=== PATIENT | male | born 1995 | race Caucasian/White ===

== ENCOUNTER 2021-01-07 08:23 | Emergency (ER) | payer BC ==
[2021-01-07] MEDS ORDERED: Naproxen 500 MG Tab PO ONE (08:39)
--- NOTE | 2021-01-07 08:41 | EDM.PDOC ---
ED HPI GENERAL MEDICAL PROBLEM - General Chief Complaint: Respiratory Problem Stated Complaint: chest pain Time Seen by Provider: 01/07/21 08:29 - History of Present Illness INITIAL COMMENTS - FREE TEXT/NARRATIVE: History of present illness: [] The patient is trouble sleeping for 2 or 3 weeks because he cannot find a position where he feels like he cannot get enough air. He wheezes at night according to the . Patient says that for 3 to 4 days he feels tightness in his chest. His pressure in the anterior chest and he has trouble breathing. It is worse at night. He has chronic recurring drainage from his nose and is a obligate mouth breather. This is been a problem for his entire life. The patient had a little fever 2 days ago. He has no nausea vomiting change in appetite change in bowel or bladder habits. He is not diabetic and has no history of hypertension high cholesterol. His father had coronary vessel disease in his 30s. Review of systems: As per history of present illness and below otherwise all systems reviewed and negative. Past medical history: As per history of present illness and as reviewed below otherwise noncontributory. Surgical history: As per history of present illness and as reviewed below otherwise noncontributory. Social history: No reported history of drug or alcohol abuse. Family history: As per history of present illness and as reviewed below otherwise noncontri butory. Physical exam: Constitutional - well developed, well-nourished and in no acute distress HEENT - normocephalic, no evidence of trauma - external nose and mouth normal - no mass in neck and no JVD - mucosae moist EYES - full EOM, PERRL, no icterus - no evidence of inflammation, injection, or drainage Respiratory - no respiratory distress, equal bilateral expansion, lungs diminished throughout with coarse expiratory sounds and prolonged expiratory phase of respiration Cardiovascular - Regular Rhythm with S1 and S2 appreciated and no murmur, gallop or rub. GI - abdomen soft without distension or organomegaly - normal bowel sounds - no guard or rebound Musculoskeletal no gross deformity of long bones or joints - no tenderness, swelling or edema Neurologic - Alert and oriented times four - CN II-XII grossly intact - motor sensory and coordination symmetrically normal Psychiatric - appropriate mood and affect with normal thought content Hematologic - No petechiae or purpura - mucosa appropriate color and sclera not pale - normal nail bed color and refill Integument - no rash or evidence of trauma - normal turgor Diagnostics: [] Therapeutics: [] Impression: [] Plan: [] Definitive disposition and diagnosis as appropriate pending reevaluation and review of above. - Related Data Allergies Allergy/AdvReac Type Severity Reaction Status Date / Time No Known Allergies Allergy Verified 01/07/21 08:44 Home Meds: Home Meds Albuterol Sulfate [Albuterol Sulfate HFA] 8.5 gm INH Q4HR PRN #1 inhaler 01/07/21 [Rx] predniSONE [Prednisone] 60 mg PO DAILY #15 tablet 01/07/21 [Rx] Past Medical History HEENT History: Reports: None Cardiovascular History: Reports: None Respiratory History: Reports: None Gastrointestinal History: Reports: GERD Genitourinary History: Reports: None Musculoskeletal History: Reports: Fracture, Other (See Below) Other Musculoskeletal History: R hand Neurological History: Reports: None Psychiatric History: Reports: None Endocrine/Metabolic History: Reports: None Hematologic History: Reports: None Immunologic History: Reports: None Oncologic (Cancer) History: Reports: None Dermatologic History: Reports: None - Infectious Disease History Infectious Disease History: Reports: None - Past Surgical History Head Surgeries/Procedures: Reports: None Social & Family History - Family History Family Medical History: No Pertinent Family History ED ROS GENERAL - Review of Systems Review Of Systems: Comprehensive ROS is negative, except as noted in HPI. ED EXAM, GENERAL - Physical Exam Exam: See Below Free Text/Narrative:: My physical exam is in the HPI #1 Interpretation EKG Interpretation Comments: ED sinus rhythm heart rate 82 NM interval 165. QT duration 414 and axis 48. Normal QRS. Normal ST and T. No prior for comparison. Impression normal Course - Vital Signs Text/Narrative:: 839 hours x-ray is normal. That is my interpretation. Patient will be given comfort splint and told to take anti-inflammatories and apply heat. Ortho follow-up as needed only 1038 hrs. the patient is markedly improved. Discharged in satisfactory condition with a prescription for albuterol, a prednisone prescription, increase fluids and a chamber to use with the inhaler to extend the distance between his mouth and the inhaler. Last Recorded V/S: Last Vital Signs Temp 36.7 C 01/07/21 10:18 Pulse 74 01/07/21 10:18 Resp 20 01/07/21 10:18 BP 112/72 01/07/21 10:18 Pulse Ox 94 L 01/07/21 10:18 - Orders/Labs/Meds Orders: Active Orders 24 hr Category Date Time Status EKG Documentation Completion [RC] AM Care 01/07/21 09:03 Active Sodium Chloride 0.9% [Saline Flush] Med 01/07/21 09:03 Active 10 ml FLUSH ASDIRECTED PRN Sodium Chloride 0.9% [Saline Flush] Med 01/07/21 09:03 Active 2.5 ml FLUSH ASDIRECTED PRN Saline Lock Insert [OM.PC] Stat Oth 01/07/21 09:03 Ordered Medication Orders Sodium Chloride (Sodium Chloride 0.9% 10 Ml Syringe) 10 ml FLUSH ASDIRECTED PRN PRN Reason: Keep Vein Open Last Admin: 01/07/21 09:13 Dose: 10 ml Documented by: LEN Sodium Chloride (Sodium Chloride 0.9% 2.5 Ml Syringe) 2.5 ml FLUSH ASDIRECTED PRN PRN Reason: Keep Vein Open Last Admin: 01/07/21 09:13 Dose: 2.5 ml Documented by: LEN Labs: Laboratory Tests 01/07/21 01/07/21 Range/Units 09:31 09:31 WBC 8.29 (4.0-11.0) K/uL RBC 5.21 (4.50-5.90) M/uL Hgb 15.1 (13.0-17.0) g/dL Hct 45.6 (38.0-50.0) % MCV 87.5 (80.0-98.0) fL MCH 29.0 (27.0-32.0) pg MCHC 33.1 (31.0-37.0) g/dL RDW Std Deviation 43.6 (28.0-62.0) fl RDW Coeff of Aaron 14 (11.0-15.0) % Plt Count 230 (150-400) K/uL MPV 11.50 (7.40-12.00) fL Neut % (Auto) 64.1 (48.0-80.0) % Lymph % (Auto) 19.5 (16.0-40.0) % Campbell % (Auto) 5.9 (0.0-15.0) % Eos % (Auto) 10.0 H (0.0-7.0) % Baso % (Auto) 0.5 (0.0-1.5) % Neut # (Auto) 5.3 (1.4-5.7) K/uL Lymph # (Auto) 1.6 (0.6-2.4) K/uL Campbell # (Auto) 0.5 (0.0-0.8) K/uL Eos # (Auto) 0.8 H (0.0-0.7) K/uL Baso # (Auto) 0.0 (0.0-0.1) K/uL Nucleated RBC % 0.0 /100WBC Nucleated RBCs # 0 K/uL Sodium 136 (136-148) mmol/L Potassium 4.5 (3.5-5.1) mmol/L Chloride 102 (98-107) mmol/L Carbon Dioxide 25.9 (21.0-32.0) mmol/L BUN 11 (7.0-18.0) mg/dL Creatinine 1.0 (0.8-1.3) mg/dL Est Cr Clr Drug Dosing 96.52 mL/min Estimated GFR (MDRD) > 60.0 ml/min Glucose 111 H (74-106) mg/dL Calcium 8.6 (8.5-10.1) mg/dL Total Bilirubin 0.3 (0.2-1.0) mg/dL AST 22 (15-37) IU/L ALT 28 (14-63) IU/L Alkaline Phosphatase 77 (46-116) U/L Troponin I < 0.050 (0.000-0.056) ng/mL Total Protein 8.2 (6.4-8.2) g/dL Albumin 3.8 (3.4-5.0) g/dL Globulin 4.4 H (2.6-4.0) g/dL Albumin/Globulin Ratio 0.9 (0.9-1.6) Meds: Medications Generic Name Dose Route Start Last Admin Trade Name Freq PRN Reason Stop Dose Admin Sodium Chloride 10 ml 01/07/21 09:03 01/07/21 09:13 Sodium Chloride 0.9% 10 Ml Syringe FLUSH 10 ml ASDIRECTED PRN Administration Keep Vein Open Sodium Chloride 2.5 ml 01/07/21 09:03 01/07/21 09:13 Sodium Chloride 0.9% 2.5 Ml Syringe FLUSH 2.5 ml ASDIRECTED PRN Administration Keep Vein Open Discontinued Medications Generic Name Dose Route Start Last Admin Trade Name Viri PRN Reason Stop Dose Admin Albuterol/Ipratropium 3 ml 01/07/21 09:03 01/07/21 09:13 Albuterol/Ipratropium 3.0-0.5 Mg/3 Ml Neb Soln NEB 01/07/21 09:04 3 ml ONETIME ONE Administration Aspirin 324 mg 01/07/21 09:03 01/07/21 09:13 Aspirin 81 Mg Tab.Chew PO 01/07/21 09:04 324 mg ONETIME ONE Administration Aspirin Confirm 01/07/21 09:16 01/07/21 09:28 Aspirin 81 Mg Tab.Chew Administered 01/07/21 09:17 Not Given Dose 81 mg .ROUTE .STK-MED ONE Ceftriaxone Sodium/Dextrose 1 50 mls @ 100 mls/hr 01/07/21 10:04 01/07/21 10:13 gm/ Premix IV 01/07/21 10:33 Not Given ONETIME ONE Prednisone 60 mg 01/07/21 09:29 01/07/21 09:50 Prednisone 20 Mg Tab PO 01/07/21 09:30 60 mg ONETIME ONE Administration Prednisone 60 mg 01/07/21 09:31 01/07/21 09:51 Prednisone 20 Mg Tab PO 01/07/21 09:32 Not Given ONETIME ONE Departure - Departure Time of Disposition: 10:38 Disposition: Home, Self-Care 01 Condition: Good Clinical Impression: Acute bronchitis - Discharge Information Prescriptions: Albuterol Sulfate [Albuterol Sulfate HFA] 8.5 gm INH Q4HR PRN #1 inhaler PRN Reason: Dyspnea predniSONE [Prednisone] 60 mg PO DAILY #15 tablet Instructions: Acute Bronchitis, Adult Referrals: PCP,None [Primary Care Provider] - Forms: ED Department Discharge Additional Instructions: [facility] [address] [place] [id number] [id number] The following information is given to patients seen in the emergency department who are being discharged to home. This information is to outline your options for follow-up care. We provide all patients seen in our emergency department with a follow-up referral. The need for follow-up, as well as the timing and circumstances, are variable depending upon the specifics of your emergency department visit. If you don't have a primary care physician on staff, we will provide you with a referral. We always advise you to contact your personal physician following an emergency department visit to inform them of the circumstance of the visit and for follow-up with them and/or the need for any referrals to a consulting specialist. The emergency department will also refer you to a specialist when appropriate. This referral assures that you have the opportunity for follow-up care with a specialist. All of these measure are taken in an effort to provide you with optimal care, which includes your follow-up. Under all circumstances we always encourage you to contact your private physician who remains a resource for coordinating your care. When calling for follow-up care, please make the office aware that this follow-up is from your recent emergency room visit. If for any reason you are refused follow-up, please contact the [facility] Department at and asked to speak to the emergency department charge nurse. Sepsis Event Note (ED) - Focused Exam Vital Signs: Vital Signs Temp Pulse Resp BP Pulse Ox 01/07/21 10:18 36.7 C 74 20 112/72 94 L 01/07/21 09:38 36.4 C 88 20 116/64 96 01/07/21 08:39 36.1 C 80 20 131/74 95 - My Orders Last 24 Hours: My Active Orders 01/07/21 09:03 EKG Documentation Completion [RC] AM Sodium Chloride 0.9% [Saline Flush] 10 ml FLUSH ASDIRECTED PRN Sodium Chloride 0.9% [Saline Flush] 2.5 ml FLUSH ASDIRECTED PRN Saline Lock Insert [OM.PC] Stat - Assessment/Plan Last 24 Hours: My Active Orders 01/07/21 09:03 EKG Documentation Completion [RC] AM Sodium Chloride 0.9% [Saline Flush] 10 ml FLUSH ASDIRECTED PRN Sodium Chloride 0.9% [Saline Flush] 2.5 ml FLUSH ASDIRECTED PRN Saline Lock Insert [OM.PC] Stat
[2021-01-07] MEDS ORDERED: Sodium Chloride 0.9% 2.5 ML Syringe FLUSH PRN (09:03)
[2021-01-07] MEDS ORDERED: Albuterol/Ipratropium 3.0-0.5 MG/3 ML Neb Soln NEB ONE (09:03)
[2021-01-07] MEDS ORDERED: Sodium Chloride 0.9% 10 ML Syringe FLUSH PRN (09:03)
[2021-01-07] MEDS ORDERED: Aspirin 81 MG Tab.Chew PO ONE (09:03)
[2021-01-07] MEDS ORDERED: Aspirin 81 MG Tab.Chew ONE (09:16)
[2021-01-07] MEDS ORDERED: predniSONE 20 MG Tab PO ONE ×2 (09:29→09:31)
[2021-01-07 10:03] LABS: BLOOD UREA NITROGEN,BUN 11 mg/dL (7.0-18.0); CARBON DIOXIDE,CO2 25.9 mmol/L (21.0-32.0); CHLORIDE,CL 102 mmol/L (98-107); GLUCOSE RANDOM 111 mg/dL (74-106); POTASSIUM,K 4.5 mmol/L (3.5-5.1); SODIUM,NA 136 mmol/L (136-148)
[2021-01-07] MEDS ORDERED: cefTRIAXone 1 GM in Premix Bag 1 BAG IV ONE (10:04)
[2021-01-07 10:19] VITALS: PULSE 74
--- NOTE | 2021-01-07 10:21 | CR ---
INDICATION: Shortness of breath TECHNIQUE: Chest 1 view COMPARISON: None FINDINGS: Cardiovascular and mediastinum: Heart size and vasculature are normal in caliber and appearance. Lungs and pleural spaces: Lungs are clear. No sign of infiltrate or mass. No sign of pleural effusion. No pneumothorax. Bones and soft tissues: No significant findings. IMPRESSION: No acute or significant findings. Dictated by Haider Sargent MD @ 01/07/2021 10:20:[address] Haider Sargent @ Jan 07 2021 10:20AM
[2021-01-07 10:54] VITALS: BP 110/75
== END 2021-01-07 10:51 | disposition home or self-care (01) ==
LOC: MW.ED 08:23
DX: J20.9 Acute bronchitis, unspecified (principal)
CPT/HCPCS: 36415; 71045; 80053; 84484; 85025; 93005; 94640; 99285; A9270; 93010; 99284; J7620-GY